=== PATIENT | female | born 1955 | race Caucasian/White ===

== ENCOUNTER 2016-12-09 06:40 | Outpatient (CLI) ==
--- NOTE | 2016-12-10 09:42 | ECHO2D ---
Date of Exam: 12/09/16 Ordering Physician: AYUSH FIELD Reason for Echo: HYPERTENSION, SOB M-Mode Normal Adult Results LV Dimensions Normal Adult Results AoV Opening excursions >1.6 >1.6 LVEDD-base- 3.5-5.8 4.2 Ao root dimensions 2.0-3.7 3.0 LVESD-base- 3.1-4.6 L. Atrium dimensions 1.9-3.8 3.9 Post. Wall thickness 0.8-1.1 1.1 IV septum (thickness) 0.7-1.2 1.1 Post. Wall excursion 0.72-1.3 NORMAL Septal motion NORMAL Systolic motion R. Ventricular cavity 1.5-2.0 NORMAL LVEF 60% 59% Paradoxical septal wall motion NORMAL 2-D : 2-D M Mode Echocardiogram was performed using apical four chamber and left parasternal long and short axis views. Mitral, tricuspid and aortic valves appear to be normal. Contractility of the left ventricle seems to be normal, so is the cavity size. Left atrial cavity size and aortic root appear to be normal. There is no pericardial effusion. There is no thrombus noted in the left ventricular or left aortic cavity. No mitral valve prolapse noted. M-MODE: MV: NORMAL AV: NORMAL TV: NORMAL PV: CHAMBER SIZE: NORMAL WALL MOTION: NORMAL PERICARDIUM: NORMAL INTERPRETATION: 1. NORMAL 2 "D" "M" MODE ECHO MTDD
== END 2016-12-09 06:41 | disposition home or self-care (01) ==
LOC: CAR 06:40
PROVIDERS: ATTEND Internal Medicine
DX: I10 Essential (primary) hypertension (principal); R06.02 Shortness of breath
CPT/HCPCS: 93005; 93010

== ENCOUNTER 2016-12-15 06:40 | Outpatient (CLI) ==
[2016-12-15] MEDS ORDERED: ATROPINE SULFATE PFS ONE (07:42)
[2016-12-15] MEDS: DOBUTAMINE 250 ML IV ONE ×2 (08:15)
[2016-12-15 09:48] VITALS: BP 110/72; TEMP 97.6
--- NOTE | 2016-12-15 10:52 | NM ---
Cardiac Stress Test HISTORY: Hypertension, shortness of breath, abnormal EKG. COMPARISON: None of this type. TECHNIQUE: Resting: The patient was injected with 4.1 millicuries of 99m technetium Sestamibi (Cardiolite) int ravenously after which a "resting" SPECT study of the heart was performed. Stress: The patient was stressed pharmacologically with dobutamine and at the appropriate time inje cted with 24.6 millicuries of 99m technetium Sestamibi (Cardiolite) after which a "stress" SPECT mary dy of the heart was performed. Gated images of the heart were also obtained to assess wall motion an d calculate ejection fraction. For details of the stress protocol employed, reference is made to th e separate report of the performing physician. FINDINGS: The stress perfusion images demonstrate a generally uniform distribution of activity in t he left ventricular myocardium. Computer generated images suggest equivocal ischemic changes in the inferolateral wall segment which appeared to be associated with reverse redistribution. The resting perfusion images demonstrate no evidence of significant redistribution/ischemia elsewhere. The left ventricular ejection fraction (LVEF) is 68%. The left ventricular wall motion was not specifically evaluated. IMPRESSION: 1. Left ventricular myocardial perfusion demonstrates no evidence of significant redistribution/isc hemia, as discussed in the report. 2. The left ventricular ejection fraction (LVEF) is 68%. 3. The left ventricular wall motion was not specifically evaluated.
--- NOTE | 2016-12-17 11:02 | ECHOSTRESS ---
Date of Exam: 12/15/16 Ordering Physician: AYUSH FIELD Reason for Echo: HTN, SOB, DOBUTAMINE STRESS--NO ISCHEMIA M-Mode Normal Adult Results LV Dimensions Normal Adult Results AoV Opening excursions >1.6 LVEDD-base- 3.5-5.8 Ao root dimensions 2.0-3.7 LVESD-base- 3.1-4.6 L. Atrium dimensions 1.9-3.8 Post. Wall thickness 0.8-1.1 IV septum (thickness) 0.7-1.2 Post. Wall excursion 0.72-1.3 Septal motion Systolic motion R. Ventricular cavity 1.5-2.0 LVEF 60% Paradoxical septal wall motion 2-D: NORMAL LEFT VENTRICULAR CONTRACTILITY--RESTING AND DURING DOBUTAMINE INFUSION M-MODE: MV: AV: TV: PV: CHAMBER SIZE: WALL MOTION: NORMAL LEFT VENTRICULAR CONTRACTILITY--RESTING AND DURING DOBUTAMINE INFUSION PERICARDIUM: INTERPRETATION: 1. NORMAL LEFT VENTRICULAR CONTRACTILITY--RESTING AND DURING DOBUTAMINE INFUSION SESTAMIBI TO FOLLOW MTDD
--- NOTE | 2016-12-17 11:17 | DOBSTECHST ---
Ordering Physician: AYUSH FIELD Date of Test: 12/15/16 Reason for Examination: HTN, SOB, HEART CATH 2010-NEGATIVE Current Medications: CARAFATE, NEXIUM, XANAX, LIPITOR, LISINOPRIL, GABAPENTIN, LEXAPRO Height: 60" Weight: 140 LBS Target Heart Rate: 136/161 ST Segment Stage Time HR BPM BP mmhg Rhythm +/- Up Down Comments/Symptoms Control Sitting 64 110/72 SR X NONE Dobutamine 250mg/D5W 5cmg/KG/mn 10cmg/KG/mn 3" 94 110/60 SR X NONE 15cmg/KG/mn 2" 109 118/68 SR X NONE 20cmg/KG/mn 1:44 144 SR X NONE 25cmg/KG/mn 30cmg/KG/mn 35cmg/KG/mn 40cmg/KG/mn Time: 3" HR B/P Time: 6" HR B/P Time: HR B/P Recovery 96 100/58 Recovery 78 94/58 Recovery Total Time: 6:44 Maximum Heart Rate Reached: 144 __ Interpretation: 1. TEST NEGATIVE FOR ISCHEMIC ST-T WAVE CHANGES 2. NO CHEST PAIN OR CHEST DISCOMFORT 3. NORMAL LEFT VENTRICLE CONTRACTILITY--RESTING AND DURING DOBUTAMINE INFUSION SESTAMIBI TO FOLLOW MTDD
== END 2016-12-15 06:41 | disposition home or self-care (01) ==
LOC: CAR 06:40
PROVIDERS: ATTEND Internal Medicine
DX: R94.31 Abnormal electrocardiogram [ECG] [EKG] (principal); R06.02 Shortness of breath; I10 Essential (primary) hypertension

== ENCOUNTER 2018-06-25 10:59 | Outpatient (CLI) ==
--- NOTE | 2018-06-25 12:04 | MAMMO ---
EXAM: Bilateral digital screening mammogram (2-D and 3-D) History: Screening Comparison: Bilateral mammogram 06/30/2017 Findings: MLO and CC views of bilateral breasts demonstrate scattered fibroglandular breast parenchy ma. CAD was reviewed by the radiologist. Tomosynthesis was performed. Stable benign lymph node wit hin the upper-outer quadrant of the right breast. Stable benign bilateral breast calcifications. Th ere are no developing masses, no suspicious microcalcifications and no architectural distortions Impression: Benign stable mammogram. Recommend followup routine screening mammography in 1 year. BIRADS 2
== END 2018-06-25 11:00 | disposition home or self-care (01) ==
LOC: RAD 10:59
PROVIDERS: ATTEND Internal Medicine
DX: Z12.31 Encounter for screening mammogram for malignant neoplasm of breast (principal)